=== PATIENT | male | born 1960 | race Caucasian/White ===

== ENCOUNTER 2016-07-09 15:55 | Emergency (ER) | payer MEDICARE, MEDICAID ==
[~2016-07-09] VITALS: Ht 167.6 cm; Wt 120.5 kg
[~2016-07-09 15:55] MED LIST: HYDR50CA PO; SERO150T PO
[2016-07-09 15:57] VITALS: BP 142/89; PULSE 124; RESP 20; TEMP 99.3; O2SAT 98
[2016-07-09 17:08] VITALS: PULSE 66
[2016-07-09] MEDS ORDERED: AMOX875T PO (17:08)
--- NOTE | 2016-07-09 17:09 | PD ---
HPI Chief Complaint: ENT Complaint Time Seen by Provider: 17:08 Travel History International Travel<30 days: No Contact w/Intl Traveler<30days: No Traveled to known affect area: No History of Present Illness HPI 56-year-old male presents to the emergency department for evaluation of right ear fullness and clog. Patient states that for the past 4 days he has had cold symptoms. States that his cold symptoms have been improving but he has had a slight dry cough. States that last night he coughed and felt his right ear became clog. States he put some drops in his ear but this did not help. States that he still feels as though his right ear has a fullness and a discomfort. He denies any decreased hearing, fever, chills, nausea, vomiting, lightheadedness or dizziness, chest pain, shortness breath. No other complaints. PFSH Past Medical History Bipolar Disorder: Yes Anxiety: Yes Depression: Yes Cardiovascular Problems: Yes Diabetes: No Diminished Hearing: No GERD: Yes Headaches: Yes Hepatitis: Yes (TYPE C) Hypertension: Yes Social History Alcohol Use: No (PT STATES " I DRINK RARELY") Tobacco Use: No Substance Use: No Allergies-Medications (Allergen,Severity, Reaction): Coded Allergies: No Known Allergies (Unverified , 07/09/16) Reported Meds & Prescriptions Reported Meds & Active Scripts Active Amoxicillin 875 Mg Tab 875 Mg PO BID 10 Days Review of Systems Except as stated in HPI: all other systems reviewed are Neg Physical Exam Narrative GENERAL: Well-nourished and well-developed pleasant patient in no acute distress who is nontoxic appearing. SKIN: Warm and dry. HEAD: Normocephalic and atraumatic. EYES: No injection, drainage, or hyphema noted. PERRLA. EOMI. ENT: No nasal drainage noted. Oropharynx is clear. Right tympanic membrane is erythematous with small effusion. Left tympanic membrane is within normal limits. No perforation bilaterally. NECK: Supple and the trachea is midline. No lymphadenopathy is noted throughout the cervical chains. CARDIOVASCULAR: Regular rate and rhythm. RESPIRATORY: Breath sounds are equal bilaterally with no accessory muscle use, wheezing, rhonchi, or crackles. NEUROLOGICAL: Awake, alert, and oriented. Normal speech and gait. Cranial nerves are grossly intact. Data Data Last Documented VS Vital Signs Date Time Temp Pulse Resp B/P Pulse Ox O2 Delivery O2 Flow Rate FiO2 1/25/17 17:08 66 07/09/16 15:57 99.3 20 142/89 98 Room Air MDM Medical Decision Making Medical Screen Exam Complete: Yes Emergency Medical Condition: Yes Differential Diagnosis Acute otitis media versus otitis externa versus URI Narrative Course 56-year-old male presents to the emergency department for evaluation of right ear clogging sensation and discomfort. Patient is afebrile, vital signs are stable. Patient does have some erythema and an effusion to the right tympanic membrane. We'll treat the patient with amoxicillin for otitis media. Advised follow-up with his PCP. Stable for discharge. Diagnosis Primary Impression: Right otitis media Qualified Code: H66.91 - Right otitis media, unspecified chronicity, unspecified otitis media type Referrals: Primary Care Physician Patient Instructions: General Instructions, Otitis Media (ED) Additional Instructions: Take medications as prescribed with food and a full glass of water. Follow-up with your Primary Care Physician. Return to the ED for any acute worsening of symptoms. Med/Other Pt SpecificInfo: Prescription(s) given Scripts Amoxicillin 875 Mg [id number] Mg PO BID 10 Days Ref 0 Prov:Cezar Copeland MD 07/09/16 Disposition: 01 DISCHARGE HOME Condition: Stable Vera Pinto Jul 09, 2016 17:09
== END 2016-07-09 17:31 | disposition home or self-care (01) ==
LOC: NEPB 15:55
DX: H66.91 Otitis media, unspecified, right ear (principal); I10 Essential (primary) hypertension
CPT/HCPCS: 99283

== ENCOUNTER 2016-12-31 10:26 | Inpatient (IN) | payer MEDICARE, OTHER ==
[2016-12-31] VITALS (7 sets, daily range): BP systolic 126–142; BP diastolic 80–93; PULSE 86–136; RESP 18–23; TEMP 98.1–98.7; O2SAT 96–99
[~2016-12-31] VITALS: Ht 167.6 cm; Wt 103.3 kg
[~2016-12-31 10:26] MED LIST changes: +AMOX875T PO; -HYDR50CA PO; -SERO150T PO
[2016-12-31] MEDS ORDERED: SERO50TA PO (10:56)
[2016-12-31] MEDS ORDERED: HYDR-3801 PO (10:56)
[2016-12-31 11:10] LABS: AUTOMATED NEUTROPHIL # 6.4 TH/MM3 (1.8-7.7); BASOPHIL # 0.1 TH/MM3 (0-0.2); BASOPHIL % 0.8 % (0.0-2.0); EOSINOPHIL # 0.1 TH/MM3 (0-0.4); EOSINOPHIL % 0.7 % (0.0-4.0); HEMATOCRIT 50.6 % (39.0-51.0); HEMO FLAGS DIFF FINAL; LYMPH % 22.3 % (9.0-44.0); LYMPHOCYTE # 2.2 TH/MM3 (1.0-4.8); MEAN CELL VOLUME 83.9 FL (80.0-100.0); MEAN CORPUSCULAR HEMOGLOBIN 27.6 PG (27.0-34.0); MEAN CORPUSCULAR HGB CONC 32.9 % (32.0-36.0); MONO % 9.9 % (0.0-8.0); NEUT % 66.3 % (16.0-70.0); PLATELET COUNT 254 TH/MM3 (150-450); RED BLOOD COUNT 6.03 MIL/MM3 (4.50-5.90); RED CELL DISTRIBUTION WIDTH 13.5 % (11.6-17.2); WHITE BLOOD COUNT 9.7 TH/MM3 (4.0-11.0)
[2016-12-31] MEDS ORDERED: SODIUM CHLOR 0.9% 1000 ML INJ 1,000 ML IV ONE ×2 (11:15→14:00)
[2016-12-31] MEDS ORDERED: SODIUM CHLORIDE 0.9% FLUSH 10 ML FLUSH IVF PRN (11:15)
[2016-12-31 11:35] LABS: ALT (GPT) 147 U/L (12-78); ANION GAP 26 MEQ/L (5-15); AST (GOT) 144 U/L (15-37); BICARBONATE 8.7 MEQ/L (21.0-32.0); BLOOD UREA NITROGEN 11 MG/DL (7-18); CHLORIDE 93 MEQ/L (98-107); GLOMERULAR FILTRATION RATE 63 ML/MIN (>89); POTASSIUM 3.7 MEQ/L (3.5-5.1); SODIUM (NA) 128 MEQ/L (136-145)
[2016-12-31 11:46] LABS: ALKALINE PHOSPHATASE 109 U/L (45-117)
--- NOTE | 2016-12-31 11:46 | PD ---
HPI Chief Complaint: Medical Clearance Time Seen by Provider: 11:00 Travel History International Travel<30 days: No Contact w/Intl Traveler<30days: No Traveled to known affect area: No History of Present Illness HPI Patient is a 56-year-old male presenting to emergency for evaluation of dry mouth and decreased appetite. Patient states the symptoms have been ongoing for 3-4 days. He reports an episode of vomiting a few days ago. He denies abdominal pain, chest pain, diarrhea, dysuria, shortness of breath, fever, chills. He denies any change in his bowel habits. He reports a history of hypertension and questionable diabetes. He has an appointment with his primary care provider in a few weeks but is unable to get in any sooner. PFSH Past Medical History Bipolar Disorder: Yes Anxiety: Yes Depression: Yes Diabetes: No Diminished Hearing: No GERD: Yes Headaches: Yes Hepatitis: Yes (TYPE C) Hypertension: Yes Tetanus Vaccination: > 5 Years Influenza Vaccination: Yes Past Surgical History Surgical History: No Previous Surgery Social History Alcohol Use: No (PT STATES " I DRINK RARELY") Tobacco Use: No (pt denies) Substance Use: No (pt denies ) Allergies-Medications (Allergen,Severity, Reaction): Coded Allergies: No Known Allergies (Unverified , 12/31/16) Reported Meds & Prescriptions Reported Meds & Active Scripts Active Reported Hydralazine (Hydralazine HCl) 100 Mg Tab 100 Mg PO BID Take with meals Seroquel (Quetiapine Fumarate) 50 Mg Tab 50 Mg PO HS Review of Systems Except as stated in HPI: all other systems reviewed are Neg Gastrointestinal: Positive: Loss of Appetite, Other (dry mouth) Physical Exam Narrative GENERAL: Well-developed, well-nourished, alert male. Resting comfortably in no acute distress. SKIN: Warm and dry. HEAD: Atraumatic. Normocephalic. EYES: Pupils equal and round. No scleral icterus. No injection or drainage. ENT: No nasal bleeding or discharge. Mucous membranes pink and moist. Dry lips. NECK: Trachea midline. No JVD. CARDIOVASCULAR: Regular rate and rhythm. RESPIRATORY: No accessory muscle use. Clear to auscultation. Breath sounds equal bilaterally. GASTROINTESTINAL: Abdomen soft, non-tender, nondistended. Hepatic and splenic margins not palpable. Positive bowel sounds, no rebound, no guarding. MUSCULOSKELETAL: Extremities without clubbing, cyanosis, or edema. No obvious deformities. NEUROLOGICAL: Awake and alert. No obvious cranial nerve deficits. Motor grossly within normal limits. Five out of 5 muscle strength in the arms and legs. Normal speech. PSYCHIATRIC: Appropriate mood and affect; insight and judgment normal. Data Data Last Documented VS Vital Signs Date Time Temp Pulse Resp B/P Pulse Ox O2 Delivery O2 Flow Rate FiO2 12/31/16 11:40 99 Room Air 12/31/16 10:59 112 18 12/31/16 10:29 98.1 134/93 Orders Complete Blood Count With Diff (12/31/16 10:33) Comprehensive Metabolic Panel (12/31/16 10:33) Magnesium (Mg) (12/31/16 11:08) Beta Hydroxybutyrate (Acetone) (12/31/16 11:08) Urinalysis - C+S If Indicated (12/31/16 11:08) Blood Glucose (12/31/16 11:08) Ecg Monitoring (12/31/16 11:08) Iv Access Insert/Monitor (12/31/16 11:08) Oximetry (12/31/16 11:08) Sodium Chloride 0.9% Flush (Ns Flush) (12/31/16 11:15) Sodium Chlor 0.9% 1000 Ml Inj (Ns 1000 M (12/31/16 11:15) Chest, Single Ap (12/31/16 ) Arterial Blood Gas (Abg) (12/31/16 ) ^ Insert Iv (12/31/16 12:47) Diet Npo (12/31/16 Lunch) Sodium Chlor 0.9% 1000 Ml Inj (Ns 1000 M (12/31/16 12:47) Dext 5%-Nacl 0.9% 1000 Ml Inj (D5w-Ns 10 (12/31/16 12:47) Insulin Human Regular Inj (Novolin R Inj (12/31/16 13:00) Insulin Regular (Iv Infusion) (Novolin R (12/31/16 13:00) Potassium Chlor 40 Meq Premix (Kcl 40 Me (12/31/16 13:00) Potassium Chlor 40 Meq Premix (Kcl 40 Me (12/31/16 13:00) Potassium Chlor 20 Meq Premix (Kcl 20 Me (12/31/16 13:00) Potassium Chlor 20 Meq Premix (Kcl 20 Me (12/31/16 13:00) Potassium Chlor 20 Meq Premix (Kcl 20 Me (12/31/16 13:00) Potassium Chlor 20 Meq Premix (Kcl 20 Me (12/31/16 13:00) Potassium Chlor 20 Meq Premix (Kcl 20 Me (12/31/16 13:00) Potassium Chlor 20 Meq Premix (Kcl 20 Me (12/31/16 13:00) Sodium Bicarbonate 8.4% Inj (Sodium Bica (12/31/16 13:00) Sodium Bicarbonate 8.4% Inj (Sodium Bica (12/31/16 13:00) Sodium Phosphate Inj (Sodium Phosphate I (12/31/16 13:00) Hemoglobin (Hgb) A1c (12/31/16 12:47) Basic Metabolic Panel (Bmp) (12/31/16 17:47) Basic Metabolic Panel (Bmp) (12/31/16 23:47) Basic Metabolic Panel (Bmp) (01/01/17 05:47) Basic Metabolic Panel (Bmp) (01/01/17 11:47) Magnesium (Mg) (12/31/16 17:47) Magnesium (Mg) (12/31/16 23:47) Magnesium (Mg) (01/01/17 05:47) Magnesium (Mg) (01/01/17 11:47) Phosphorus (Po4) (12/31/16 17:47) Phosphorus (Po4) (12/31/16 23:47) Phosphorus (Po4) (01/01/17 05:47) Phosphorus (Po4) (01/01/17 11:47) Beta Hydroxybutyrate (Acetone) (12/31/16 23:47) Beta Hydroxybutyrate (Acetone) (01/01/17 11:47) Labs Laboratory Tests Test 12/31/16 12/31/16 10:45 12:29 White Blood Count 9.7 TH/MM3 Red Blood Count 6.03 MIL/MM3 Hemoglobin 16.7 GM/DL Hematocrit 50.6 % Mean Corpuscular Volume 83.9 FL Mean Corpuscular Hemoglobin 27.6 PG Mean Corpuscular Hemoglobin 32.9 % Concent Red Cell Distribution Width 13.5 % Platelet Count 254 TH/MM3 Mean Platelet Volume 8.7 FL Neutrophils (%) (Auto) 66.3 % Lymphocytes (%) (Auto) 22.3 % Monocytes (%) (Auto) 9.9 % Eosinophils (%) (Auto) 0.7 % Basophils (%) (Auto) 0.8 % Neutrophils # (Auto) 6.4 TH/MM3 Lymphocytes # (Auto) 2.2 TH/MM3 Monocytes # (Auto) 1.0 TH/MM3 Eosinophils # (Auto) 0.1 TH/MM3 Basophils # (Auto) 0.1 TH/MM3 CBC Comment DIFF FINAL Differential Comment Sodium Level 128 MEQ/L Potassium Level 3.7 MEQ/L Chloride Level 93 MEQ/L Carbon Dioxide Level 8.7 MEQ/L Anion Gap 26 MEQ/L Blood Urea Nitrogen 11 MG/DL Creatinine 1.19 MG/DL Estimat Glomerular Filtration 63 ML/MIN Rate Random Glucose 436 MG/DL Calcium Level 9.2 MG/DL Magnesium Level 2.0 MG/DL Total Bilirubin 1.0 MG/DL Aspartate Amino Transf 144 U/L (AST/SGOT) Alanine Aminotransferase 147 U/L (ALT/SGPT) Alkaline Phosphatase 109 U/L Total Protein 8.7 GM/DL Albumin 3.9 GM/DL B-Hydroxybutyrate 15.76 MMOL/L Blood Gas Puncture Site RT RADIAL Blood Gas Patient Temperature 98.6 Blood Gas HCO3 8 mmol/L Blood Gas Base Excess -17.6 mmol/L Blood Gas Oxygen Saturation 96 % Arterial Blood pH 7.30 Arterial Blood Partial 17 mmHg Pressure CO2 Arterial Blood Partial 107 mmHG Pressure O2 Arterial Blood Oxygen Content 20.8 Vol % Arterial Blood 1.3 % Carboxyhemoglobin Arterial Blood Methemoglobin 0.6 % Blood Gas Hemoglobin 15.3 G/DL Oxygen Delivery Device RA Blood Gas Inspired Oxygen 21 % MDM Medical Decision Making Medical Screen Exam Complete: Yes Emergency Medical Condition: Yes Interpretation(s) Laboratory Tests Test 12/31/16 12/31/16 10:45 12:29 White Blood Count 9.7 TH/MM3 Red Blood Count 6.03 MIL/MM3 Hemoglobin 16.7 GM/DL Hematocrit 50.6 % Mean Corpuscular Volume 83.9 FL Mean Corpuscular Hemoglobin 27.6 PG Mean Corpuscular Hemoglobin 32.9 % Concent Red Cell Distribution Width 13.5 % Platelet Count 254 TH/MM3 Mean Platelet Volume 8.7 FL Neutrophils (%) (Auto) 66.3 % Lymphocytes (%) (Auto) 22.3 % Monocytes (%) (Auto) 9.9 % Eosinophils (%) (Auto) 0.7 % Basophils (%) (Auto) 0.8 % Neutrophils # (Auto) 6.4 TH/MM3 Lymphocytes # (Auto) 2.2 TH/MM3 Monocytes # (Auto) 1.0 TH/MM3 Eosinophils # (Auto) 0.1 TH/MM3 Basophils # (Auto) 0.1 TH/MM3 CBC Comment DIFF FINAL Differential Comment Sodium Level 128 MEQ/L Potassium Level 3.7 MEQ/L Chloride Level 93 MEQ/L Carbon Dioxide Level 8.7 MEQ/L Anion Gap 26 MEQ/L Blood Urea Nitrogen 11 MG/DL Creatinine 1.19 MG/DL Estimat Glomerular Filtration 63 ML/MIN Rate Random Glucose 436 MG/DL Calcium Level 9.2 MG/DL Magnesium Level 2.0 MG/DL Total Bilirubin 1.0 MG/DL Aspartate Amino Transf 144 U/L (AST/SGOT) Alanine Aminotransferase 147 U/L (ALT/SGPT) Alkaline Phosphatase 109 U/L Total Protein 8.7 GM/DL Albumin 3.9 GM/DL B-Hydroxybutyrate 15.76 MMOL/L Blood Gas Puncture Site RT RADIAL Blood Gas Patient Temperature 98.6 Blood Gas HCO3 8 mmol/L Blood Gas Base Excess -17.6 mmol/L Blood Gas Oxygen Saturation 96 % Arterial Blood pH 7.30 Arterial Blood Partial 17 mmHg Pressure CO2 Arterial Blood Partial 107 mmHG Pressure O2 Arterial Blood Oxygen Content 20.8 Vol % Arterial Blood 1.3 % Carboxyhemoglobin Arterial Blood Methemoglobin 0.6 % Blood Gas Hemoglobin 15.3 G/DL Oxygen Delivery Device RA Blood Gas Inspired Oxygen 21 % Vital Signs Date Time Temp Pulse Resp B/P Pulse Ox O2 Delivery O2 Flow Rate FiO2 12/31/16 10:59 112 18 12/31/16 10:29 98.1 136 20 134/93 98 Room Air Differential Diagnosis Metabolic abnormality versus DKA versus hyperglycemia versus other Narrative Course Patient is a 56-year-old male presenting for evaluation of dry mouth and decreased appetite. He had one episode of vomiting a few days ago. He states he gets sweaty at times. He thinks he may be diabetic but is uncertain. Blood glucose elevated over 400 in triage. Labs and imaging ordered and pending. IV access established, patient placed on telemetry monitoring and continue his pulse oximetry. Chest x-ray shows no acute disease. ABG shows metabolic alkalosis Chemistry with an anion gap of 26, glucose 436, sodium 128, met 2.0, K 3.7, AST/ ALT 144/147 CBC is unremarkable Beta hydroxybutyrate is 15.76 DKA protocol ordered, patient received 1 L IV fluids prior to diagnosis. Patient's vital signs remain stable. Discussed findings with patient, he is agreeable to stay although he requested to go home to turn off his air conditioner. Discussed with Dr. Vargas who accepted admission. Admit orders placed for intensive care unit. Diagnosis Primary Impression: DKA (diabetic ketoacidoses) Qualified Code: E13.10 - Diabetic ketoacidosis without coma associated with type 2 diabetes mellitus Additional Impression: Hypertension Qualified Code: I10 - Hypertension, unspecified type Admitting Information Admitting Physician Requests: Admit Condition: Stable Risa Jones [facility] Dec 31, 2016 11:46
[2016-12-31 12:39] LABS: BLOOD GAS BASE EXCESS -17.6 mmol/L (-2-2); BLOOD GAS CARBOXYHEMOGLOBIN 1.3 % (0-4); BLOOD GAS HCO3 8 mmol/L (22-26); BLOOD GAS METHEMOGLOBIN 0.6 % (0-2); BLOOD GAS O2 HGB SATURATION 96 % (90-100); BLOOD GAS OXYGEN CONTENT 20.8 Vol % (12.0-20.0); BLOOD GAS PCO2 17 mmHg (38-42); BLOOD GAS PO2 107 mmHG (61-120); BLOOD GAS TOTAL HGB 15.3 G/DL (12.0-16.0); TEMP CORR TO 98.6
[2016-12-31 12:40] LABS: CRITICAL VALUE YES; DRAW SITE RT RADIAL; FIO2 21 %; NUMBER OF ARTERIAL PUNCTURES 1; OXYGEN DEVICE RA; STAT YES; ULNAR PULSE PRESENT
[2016-12-31 12:41] LABS: BETA-HYDROXYBUTYRATE 15.76 MMOL/L (0.00-0.39)
--- NOTE | 2016-12-31 12:51 | RADRPT ---
EXAM DATE/TIME: 12/31/2016 12:22 [place] COMPARISON: No previous studies available for comparison. INDICATIONS : Nausea, vomiting, dizziness. MEDICAL HISTORY : None. SURGICAL HISTORY : None. ENCOUNTER: Initial ACUITY: 2 days PAIN SCORE: 0/10 LOCATION: Bilateral chest FINDINGS: A single view of the chest demonstrates the lungs to be symmetrically aerated without evidence of mas s, infiltrate or effusion. The cardiomediastinal contours are unremarkable. Prominent cardiac fat-p ad. Osseous structures are intact. CONCLUSION: No acute disease. Catarino Redmond MD on December 31, 2016 at 12:49 Board Certified Radiologist. This report was verified electronically.
[2016-12-31] MEDS ORDERED: SODIUM PHOSPHATE INJ 15 MMOL in SODIUM CHLORIDE 0.9% INJ 100 ML IV PRN (13:00)
[2016-12-31] MEDS ORDERED: POTASSIUM CHLOR 40 MEQ PREMIX 100 ML IV PRN ×2 (13:00)
[2016-12-31] MEDS ORDERED: INSULIN HUMAN REGULAR 1,000 UNITS/10 ML VIAL IV PUSH ONE (13:00)
[2016-12-31] MEDS ORDERED: INSULIN REGULAR (IV INFUSION) 100 UNITS in SODIUM CHLORIDE 0.9% INJ 99 ML IV SCH (13:00)
[2016-12-31] MEDS ORDERED: POTASSIUM CHLOR 20 MEQ PREMIX 100 ML IV PRN ×3 (13:00)
[2016-12-31] MEDS ORDERED: SODIUM BICARBONATE 8.4% SOLN 50 MEQ/50 ML VIAL IV PRN ×2 (13:00)
[2016-12-31] MEDS ORDERED: SENNOSIDES 8.6 MG TAB PO PRN (13:15)
[2016-12-31] MEDS ORDERED: BISACODYL 10 MG SUPP RECTAL PRN (13:15)
[2016-12-31] MEDS ORDERED: ONDANSETRON HCL 4 MG/2 ML VIAL IVP PRN (13:15)
[2016-12-31] MEDS ORDERED: MAGNESIUM HYDROXIDE SUSP 30 ML CUP PO PRN (13:15)
[2016-12-31] MEDS ORDERED: TEMAZEPAM 15 MG CAP PO PRN (13:15)
[2016-12-31] MEDS ORDERED: SODIUM CHLORIDE 0.9% FLUSH 10 ML FLUSH IV FLUSH PRN (13:15)
[2016-12-31] MEDS ORDERED: NALOXONE HCL 0.4 MG/ML AMP IV PRN (13:15)
[2016-12-31] MEDS ORDERED: LACTULOSE SYRUP 20 GM/30 ML CUP PO PRN (13:15)
[2016-12-31 13:35] LABS: BLOOD, URINE NEG (NEG); COMMENT (UR) CULT NOT INDICATED; CULTURE IF INDICATED CULT NOT INDICATED; GLUCOSE,URINE 1000 mg/dL (NEG); HYALINE CAST, URINE 3 /lpf (RARE); KETONE, URINE 150 mg/dL (NEG); MUCUS URINE FEW /lpf (OCC); NITRITE,URINE NEG (NEG); SQUAMOUS EPITHELIAL CELL URINE <1 /hpf (0-5); URINE COLOR LIGHT-YELLOW (YELLW/STRAW)
--- NOTE | 2016-12-31 14:26 | HHI.HP ---
HPI Service [facility] Primary Care Physician Cody Van III, MD Admission Diagnosis DKA Diagnoses: Chief Complaint: dry mouth, decreased appetite Travel History International Travel<30 Days: No Contact w/Intl Traveler <30 Da: No Traveled to Known Affected Are: No History of Present Illness This is a 56-year-old white male who presented to the emergency room with complaints of dry mouth and decreased appetite. Patient has significant past medical history of hepatitis C, prior diagnosis of hypertension hyperlipidemia but doesn't take any medications, anxiety, depression, bipolar disease. Patient indicates that he suspected he has diabetes but has not seen his primary care physician in many years, he had an appointment for next week but because he felt so poorly he decided to come to the emergency room. Patient endorses increased mouth dryness, increased thirst, has had poor appetite. He had an episode of vomiting a few days ago. Denies any abdominal pain, no chest pain, no shortness of breath, no diarrhea, no fever, no chills. Patient indicates that he only follows up regularly with his psychiatrist as shaniqua Stafford and is compliant with his psychiatric medications. In the emergency room, patient was evaluated, he was noted tachycardic, heart rate 112, temperature 90.1, respiratory rate 18, blood pressure 134/93, sats 99% on room air. CBC was unremarkable. BMP remarkable for hyponatremia, sodium 128, chloride 93, carbon dioxide 8.7, anion gap 26, GFR 63, random glucose 436, AST 144, ALT 147. Urinalysis positive for glycosuria and ketones. B hydroxy butyrate was 15.76. Patient was started on DKA protocol, he has received 1 L IV fluids. Patient indicates that he quit drinking many years ago. He was diagnosed with hepatitis C but has never sought treatment with cork painter and grader. His abdomen is noted protuberant, indicates that he has noted an increase in weight but he attributes it to Seroquel. Patient is admitted for further evaluation and treatment. Review of Systems Constitutional: DENIES: Diaphoretic episodes, Fatigue, Fever, Weight gain, Weight loss, Chills, Dizziness, Change in appetite, Night Sweats Endocrine: COMPLAINS OF: Polydipsia, DENIES: Heat/cold intolerance, Polyuria, Polyphagia Eyes: DENIES: Blurred vision, Diplopia, Eye inflammation, Eye pain, Vision loss , Photosensitivity, Double Vision Ears, nose, mouth, throat: DENIES: Tinnitus, Hearing loss, Vertigo, Nasal discharge, Oral lesions, Throat pain, Hoarseness, Ear Pain, Running Nose, Epistaxis, Sinus Pain, Toothache, Odynophagia Respiratory: DENIES: Apneas, Cough, Snoring, Wheezing, Hemoptysis, Sputum production, Shortness of breath Cardiovascular: DENIES: Chest pain, Palpitations, Syncope, Dyspnea on Exertion , PND, Lower Extremity Edema, Orthopnea, Claudication Gastrointestinal: COMPLAINS OF: Nausea, Vomiting, DENIES: Abdominal pain, Black stools, Bloody stools, Constipation, Diarrhea, Difficulty Swallowing, Anorexia Genitourinary: DENIES: Sexual dysfunction, Urinary frequency, Urinary incontinence, Urgency, Hematuria, Dysuria, Nocturia, Penile Discharge, Testicular Pain, Testicular Swelling Musculoskeletal: DENIES: Joint pain, Muscle aches, Stiffness, Joint Swelling, Back pain, Neck pain Integumentary: DENIES: Abnormal pigmentation, Nail changes, Pruritus, Rash Hematologic/lymphatic: DENIES: Bruising, Lymphadenopathy Immunologic/allergic: DENIES: Eczema, Urticaria Neurologic: DENIES: Abnormal gait, Headache, Localized weakness, Paresthesias, Seizures, Speech Problems, Tremor, Poor Balance Psychiatric: DENIES: Anxiety, Confusion, Mood changes, Depression, Hallucinations, Agitation, Suicidal Ideation, Homicidal Ideation, Delusions Past Family Social History Past Medical History Hypertension, doesn't take any medications Hyperlipidemia, doesn't take any medications Hepatitis C, diagnosed 3-4 years ago,has not had treatment Prior ETOH abuse Headaches Anxiety Depression Bipolar Obesity Past Surgical History left ankle surgery Reported Medications Reported Meds & Active Scripts Active Reported Hydralazine (Hydralazine HCl) 100 Mg Tab 100 Mg PO BID Take with meals Seroquel (Quetiapine Fumarate) 50 Mg Tab 50 Mg PO HS Allergies: Coded Allergies: No Known Allergies (Unverified , 12/31/16) Active Ordered Medications Last Impressions Chest X-Ray 12/31/16 0000 Signed Impressions: Service Date/Time: Thursday, December 31, 2016 12:22 - CONCLUSION: No acute disease. Catarino Redmond MD Family History Father is , history of diabetes, coronary artery disease, myocardial infarction Mother age 91 old age. Had history of coronary artery disease Social History Patient is retired,is not , no children. Quit drinking many years ago, no substance abuse, no tobacco Physical Exam Vital Signs Vital Signs Date Time Temp Pulse Resp B/P Pulse Ox O2 Delivery O2 Flow Rate FiO2 12/31/16 13:55 104 18 142/88 96 Room Air 12/31/16 11:40 99 Room Air 12/31/16 10:59 112 18 12/31/16 10:29 98.1 136 20 134/93 98 Room Air Physical Exam GENERAL: This is a well-nourished, well-developed patient, in no apparent distress. SKIN: No rashes, ecchymoses or lesions. Cool and dry. HEAD: Atraumatic. Normocephalic. No temporal or scalp tenderness. EYES: Pupils equal round and reactive. Extraocular motions intact. No scleral icterus. No injection or drainage. ENT: Nose without bleeding, purulent drainage or septal hematoma. Throat without erythema, tonsillar hypertrophy or exudate. Uvula midline. Airway patent. NECK: Trachea midline. No JVD or lymphadenopathy. Supple, nontender, no meningeal signs. CARDIOVASCULAR: Regular rate and rhythm without murmurs, gallops, or rubs. RESPIRATORY: Clear to auscultation. Breath sounds equal bilaterally. No wheezes , rales, or rhonchi. Tachypneic GASTROINTESTINAL: Abdomen protuberant, soft, non tender. Unable to detect hepato -splenomegaly, or palpable masses due to body habitus. No guarding. MUSCULOSKELETAL: Extremities without clubbing, cyanosis, or edema. No joint tenderness, effusion, or edema noted. No calf tenderness. Negative Homans sign bilaterally. NEUROLOGICAL: Awake and alert. Cranial nerves II through XII intact. Motor and sensory grossly within normal limits. Five out of 5 muscle strength in all muscle groups. Normal speech. Laboratory Laboratory Tests Test 12/31/16 12/31/16 12/31/16 10:45 12:29 13:10 White Blood Count 9.7 Red Blood Count 6.03 Hemoglobin 16.7 Hematocrit 50.6 Mean Corpuscular Volume 83.9 Mean Corpuscular Hemoglobin 27.6 Mean Corpuscular Hemoglobin 32.9 Concent Red Cell Distribution Width 13.5 Platelet Count 254 Mean Platelet Volume 8.7 Neutrophils (%) (Auto) 66.3 Lymphocytes (%) (Auto) 22.3 Monocytes (%) (Auto) 9.9 Eosinophils (%) (Auto) 0.7 Basophils (%) (Auto) 0.8 Neutrophils # (Auto) 6.4 Lymphocytes # (Auto) 2.2 Monocytes # (Auto) 1.0 Eosinophils # (Auto) 0.1 Basophils # (Auto) 0.1 CBC Comment DIFF FINAL Differential Comment Sodium Level 128 Potassium Level 3.7 Chloride Level 93 Carbon Dioxide Level 8.7 Anion Gap 26 Blood Urea Nitrogen 11 Creatinine 1.19 Estimat Glomerular Filtration 63 Rate Random Glucose 436 Calcium Level 9.2 Magnesium Level 2.0 Total Bilirubin 1.0 Aspartate Amino Transf 144 (AST/SGOT) Alanine Aminotransferase 147 (ALT/SGPT) Alkaline Phosphatase 109 Total Protein 8.7 Albumin 3.9 B-Hydroxybutyrate 15.76 Blood Gas Puncture Site RT RADIAL Blood Gas Patient Temperature 98.6 Blood Gas HCO3 8 Blood Gas Base Excess -17.6 Blood Gas Oxygen Saturation 96 Arterial Blood pH 7.30 Arterial Blood Partial 17 Pressure CO2 Arterial Blood Partial 107 Pressure O2 Arterial Blood Oxygen Content 20.8 Arterial Blood 1.3 Carboxyhemoglobin Arterial Blood Methemoglobin 0.6 Blood Gas Hemoglobin 15.3 Oxygen Delivery Device RA Blood Gas Inspired Oxygen 21 Urine Color LIGHT-YELLOW Urine Turbidity CLEAR Urine pH 5.0 Urine Specific [place] 1.025 Urine Protein TRACE Urine Glucose (UA) 1000 Urine Ketones 150 Urine Occult Blood NEG Urine Nitrite NEG Urine Bilirubin NEG Urine Urobilinogen LESS THAN 2.0 Urine Leukocyte Esterase NEG Urine RBC LESS THAN 1 Urine WBC LESS THAN 1 Urine Squamous Epithelial <1 Cells Urine Hyaline Casts 3 Urine Mucus FEW Microscopic Urinalysis Comment CULT NOT INDICATED Result Diagram: 12/31/16 1045 12/31/16 1045 Imaging Last Impressions Chest X-Ray 12/31/16 0000 Signed Impressions: Service Date/Time: Saturday, December 31, 2016 12:22 - CONCLUSION: No acute disease. Catarino Redmond MD Assessment and Plan Problem List: (1) DKA (diabetic ketoacidoses) (2) Hypertension (3) Obesity (4) Hepatitis C (5) Elevated liver enzymes (6) Non-compliance (7) Hyponatremia Assessment and Plan Admit to Dr. Vargas 56-year-old male presented to the hospital with complaints of dry mouth, increased thirst decreased appetite. Symptoms have been going for 3-4 days, patient has suspected that he is diabetic however he has not follow-up with PCP in many years. Patient was found in DKA, random glucose of 436. DKA -Patient will be put on insulin drip per DKA protocol Continue with IV fluids Repeat BMP and beta hydroxybutyrate per protocol Hemoglobin A1c in the morning -Consult advertising sales agent Hyponatremia Follow BMP in the morning Currently on normal saline Elevated liver enzymes History hepatitis C, has never received treatment. Quit drinking many years ago , was a heavy alcohol user -Repeat LFTs in the morning We will check a liver ultrasound -Patient is encouraged to follow up as outpatient with chemistry account manager for further evaluation and treatment of hepatitis C Hypertension, patient is not on any medications Add Vasotec 1.25 mg IV push every 6 when necessary for systolic greater than 160 and diastolic greater than 90 Hyperlipidemia, not on any medications Lipid profile in the morning Home medications reviewed, initiated as indicated Heparin for DVT prophylaxis Plan of care has been discussed with the patient, attending and registered nurse. Further management of the patient will be dependent on the hospital course This patient was seen by myself and Dr. Vargas, this H&P is written on his behalf Physician Certification 2 Midnight Certification Type: Admission for Inpatient Services Order for Inpatient Services The services are ordered in accordance with Medicare regulations or non- Medicare payer requirements, as applicable. In the case of services not specified as inpatient-only, they are appropriately provided as inpatient services in accordance with the 2-midnight benchmark. Estimated LOS (days): 2 2 days is the estimated time the patient will need to remain in the hospital, assuming treatment plan goals are met and no additional complications. Post-Hospital Plan: Home Problem Qualifiers (1) DKA (diabetic ketoacidoses): Qualified Code: E13.10 - Diabetic ketoacidosis without coma associated with type 2 diabetes mellitus (2) Hypertension: Qualified Code: I10 - Hypertension, unspecified type (3) Obesity: (4) Hepatitis C: Qualified Code: B18.2 - Chronic hepatitis C without hepatic coma Gricel Zhang Dec 31, 2016 14:26
[2016-12-31] MEDS: POTASSIUM CHLOR 20 MEQ PREMIX 100 ML IV PRN (14:35)
[2016-12-31] MEDS ORDERED: ENALAPRILAT 1.25 MG/ML VIAL IV PUSH PRN (15:30)
[2016-12-31] MEDS: HEPARIN SODIUM - SQ 10,000 UNITS/ML VIAL SQ SCH (15:45)
--- NOTE | 2016-12-31 16:10 | RADRPT ---
EXAM DATE/TIME: 12/31/2016 15:17 [facility] COMPARISON: No previous studies available for comparison. INDICATIONS : Abnormal labs. MEDICAL HISTORY : Hypertension. Gastroesophageal reflux disease. Hepatitis C. Bipolar. DKA. SURGICAL HISTORY : Left ankle hardware surgery. ENCOUNTER: Initial ACUITY: 1 day PAIN SCORE: 2/10 LOCATION: Bilateral upper quadrant MEASUREMENTS: LIVER: 17.9 cm length COMMON DUCT: 6 mm RIGHT KIDNEY: 10.3 x 5.7 x 5.7 cm SPLEEN: 10.2 cm length FINDINGS: LIVER: The liver is diffusely echogenic. A focal area of decreased echogenicity is seen adjacent to the gall bladder fossa consistent with focal fatty sparing. No mass or ductal dilatation. Hepatopedal flow wit hin the portal vein. COMMON DUCT: No intraluminal mass or stone visualized. GALLBLADDER: Contains no stones, demonstrates no wall thickening or pericholecystic fluid. Minimal sludge within t he lumen. PANCREAS: Obscured by bowel gas. RIGHT KIDNEY: No hydronephrosis, stone or mass. SPLEEN: No focal lesion. CONCLUSION: 1. Minimal gallbladder sludge. No sonographic evidence to suggest acute cholecystitis. 2. Hepatic steatosis with focal fatty sparing adjacent to gallbladder fossa. Teddy Espino Jr., MD on December 31, 2016 at 16:06 Board Certified Radiologist. This report was verified electronically.
[2016-12-31] MEDS: DEXT 5%-NACL 0.9% 1000 ML INJ 1,000 ML IV SCH ×2 (16:28→21:31)
[2016-12-31] MEDS: SODIUM CHLOR 0.9% 1000 ML INJ 1,000 ML IV SCH ×2 (16:47→20:47)
[2016-12-31 20:50] LABS: BICARBONATE 12.6 MEQ/L (21.0-32.0); MAGNESIUM 1.8 MG/DL (1.5-2.5); POTASSIUM 3.3 MEQ/L (3.5-5.1)
[2016-12-31] MEDS: DOCUSATE SODIUM 50 MG/SENNA 8.6 MG TAB PO SCH (21:00)
[2016-12-31] MEDS: SODIUM CHLORIDE 0.9% FLUSH 10 ML FLUSH IV FLUSH SCH (21:00)
[2016-12-31] MEDS ORDERED: CHLORHEXIDINE GLUCONATE 2 % 1 PACK (2 CLOTHS)(extra cloths) TOPICAL PRN (23:30)
[2017-01-01] VITALS (14 sets, daily range): BP systolic 117–147; BP diastolic 75–97; PULSE 82–94; RESP 20–26; TEMP 97.2–99.1; O2SAT 95–97
[2017-01-01] MEDS: SODIUM CHLOR 0.9% 1000 ML INJ 1,000 ML IV SCH ×6 (00:47→20:47)
[2017-01-01 02:00] LABS: ANION GAP 14 MEQ/L (5-15); BICARBONATE 14.9 MEQ/L (21.0-32.0); BLOOD UREA NITROGEN 8 MG/DL (7-18); CHLORIDE 109 MEQ/L (98-107); GLOMERULAR FILTRATION RATE 100 ML/MIN (>89); MAGNESIUM 1.7 MG/DL (1.5-2.5); POTASSIUM 3.1 MEQ/L (3.5-5.1); SODIUM (NA) 138 MEQ/L (136-145)
[2017-01-01] MEDS: POTASSIUM CHLOR 20 MEQ PREMIX 100 ML IV PRN ×7 (02:00→21:56)
[2017-01-01 02:01] LABS: BETA-HYDROXYBUTYRATE 3.99 MMOL/L (0.00-0.39)
[2017-01-01] MEDS: CHLORHEXIDINE GLUCONATE 2 % 1 PACK (2 CLOTHS)(taper/protocol) TOPICAL SCH (04:00)
[2017-01-01] MEDS: HEPARIN SODIUM - SQ 10,000 UNITS/ML VIAL SQ SCH ×2 (05:05→14:18)
[2017-01-01] MEDS ORDERED: POTASSIUM PHOSPHATE INJ 30 MMOL in SODIUM CHLOR 0.9% 250 ML INJ 250 ML IV ONE (08:15)
[2017-01-01] MEDS: DOCUSATE SODIUM 50 MG/SENNA 8.6 MG TAB PO SCH ×2 (08:20→21:00)
[2017-01-01] MEDS ORDERED: SODIUM PHOSPHATE INJ 30 MMOL in SODIUM CHLOR 0.9% 250 ML INJ 250 ML IV ONE (10:00)
[2017-01-01] MEDS ORDERED: PNEUMOCOCCAL POLYVALENT INJ 25 MCG/0.5 ML SYR IM ONE (10:00)
[2017-01-01] MEDS: DEXT 5%-NACL 0.9% 1000 ML INJ 1,000 ML IV SCH ×2 (10:16→10:52)
[2017-01-01] MEDS: SODIUM CHLORIDE 0.9% FLUSH 10 ML FLUSH IV FLUSH SCH ×2 (11:08→21:12)
[2017-01-01 12:19] LABS: BICARBONATE 14.6 MEQ/L (21.0-32.0); MAGNESIUM 1.7 MG/DL (1.5-2.5); POTASSIUM 3.6 MEQ/L (3.5-5.1)
[2017-01-01 12:29] LABS: INDIRECT BILIRUBIN 0.6 MG/DL (0.0-0.8); TOTAL BILIRUBIN ADULT 0.8 MG/DL (0.2-1.0)
[2017-01-01 16:04] LABS: ANION GAP 13 MEQ/L (5-15); BICARBONATE 17.4 MEQ/L (21.0-32.0); BLOOD UREA NITROGEN 5 MG/DL (7-18); CHLORIDE 109 MEQ/L (98-107); GLOMERULAR FILTRATION RATE 121 ML/MIN (>89); MAGNESIUM 1.7 MG/DL (1.5-2.5); POTASSIUM 3.2 MEQ/L (3.5-5.1); SODIUM (NA) 139 MEQ/L (136-145)
[2017-01-01 16:13] LABS: BETA-HYDROXYBUTYRATE 1.99 MMOL/L (0.00-0.39); LDL CHOLESTEROL 130 MG/DL (0-99)
--- NOTE | 2017-01-01 17:19 | HHI.PR ---
Subjective Interval History Alert, oriented, less thirst, less urinary frequency, feels overall better Review of Systems Constitutional Constitutional Remarks 10 systems reviewed otherwise negative Vitals/Results Intake & Output 12/31/16 12/31/16 01/01/17 15:00 23:00 07:00 Intake Total 1717 ml 1248 ml Output Total 250 ml 150 ml Balance 1467 ml 1098 ml Intake IV Total 1717 ml 1248 ml Output Urine Total 250 ml 150 ml Stool Total 0 ml 0 ml Vital Signs Vital Signs Date Time Temp Pulse Resp B/P Pulse Ox O2 Delivery O2 Flow Rate FiO2 01/01/17 14:00 84 01/01/17 12:00 85 01/01/17 12:00 97.6 85 21 136/85 96 01/01/17 10:00 88 01/01/17 08:00 85 01/01/17 08:00 98.4 85 21 147/86 97 01/01/17 06:00 90 01/01/17 04:00 85 01/01/17 04:00 98.1 85 20 130/75 97 01/01/17 02:00 86 01/01/17 00:00 97.2 88 26 117/78 95 01/01/17 00:00 88 12/31/16 22:00 86 12/31/16 20:00 98.7 92 23 126/80 96 12/31/16 20:00 92 12/31/16 18:00 101 CBC/BMP: 12/31/16 1045 01/01/17 1452 Lab Results Laboratory Tests Test 12/31/16 12/31/16 01/01/17 01/01/17 18:00 19:34 01:15 11:07 Nasal Screen MRSA (PCR) MRSA NOT DETECTED Sodium Level 137 MEQ/L 138 MEQ/L 136 MEQ/L Potassium Level 3.3 MEQ/L 3.1 MEQ/L 3.6 MEQ/L Chloride Level 105 MEQ/L 109 MEQ/L 109 MEQ/L Carbon Dioxide Level 12.6 MEQ/L 14.9 MEQ/L 14.6 MEQ/L Anion Gap 19 MEQ/L 14 MEQ/L 12 MEQ/L Blood Urea Nitrogen 9 MG/DL 8 MG/DL 7 MG/DL Creatinine 0.87 MG/DL 0.80 MG/DL 0.68 MG/DL Estimat Glomerular Filtration 91 ML/MIN 100 ML/MIN 121 ML/MIN Rate Random Glucose 145 MG/DL 152 MG/DL 265 MG/DL Calcium Level 8.4 MG/DL 7.9 MG/DL 7.9 MG/DL Phosphorus Level 1.7 MG/DL 1.6 MG/DL 1.0 MG/DL Magnesium Level 1.8 MG/DL 1.7 MG/DL 1.7 MG/DL B-Hydroxybutyrate 3.99 MMOL/L Total Bilirubin 0.8 MG/DL Direct Bilirubin 0.2 MG/DL Indirect Bilirubin 0.6 MG/DL Aspartate Amino Transf 64 U/L (AST/SGOT) Alanine Aminotransferase 89 U/L (ALT/SGPT) Alkaline Phosphatase 73 U/L Total Protein 6.2 GM/DL Albumin 2.8 GM/DL Test 01/01/17 14:52 Sodium Level 139 MEQ/L Potassium Level 3.2 MEQ/L Chloride Level 109 MEQ/L Carbon Dioxide Level 17.4 MEQ/L Anion Gap 13 MEQ/L Blood Urea Nitrogen 5 MG/DL Creatinine 0.68 MG/DL Estimat Glomerular Filtration 121 ML/MIN Rate Random Glucose 239 MG/DL Calcium Level 7.9 MG/DL Phosphorus Level 1.4 MG/DL Magnesium Level 1.7 MG/DL Triglycerides Level 124 MG/DL Cholesterol Level 201 MG/DL LDL Cholesterol 130 MG/DL HDL Cholesterol 46.0 MG/DL Cholesterol/HDL Ratio 4.36 RATIO Thyroid Stimulating Hormone 0.848 uIU/ML 3rd Gen B-Hydroxybutyrate 1.99 MMOL/L Physical Exam General General Appearance: Comfortable, Obese Eyes Eye Exam: Pupils Reactive Ears & Nose Ears & Nose Exam: Nasal Mucosa [place] Throat Throat Exam: Oral Mucosa [place] & Moist Neck Neck Exam: Trachea Midline Pulmonary Resp Exam: Breath Sounds Equal Cardiology CV Exam: Normal Sinus Rhythm Gastrointestinal/Abdomen GI Exam: Non-Tender, Bowel Sounds Present Musculoskeletal MS Exam: Normal Tone Integumentary Skin Exam: Warm, Dry Neurologic Neuro Exam: Alert, Awake, Oriented, Speech Clear, Moving All Extremities Psychiatric Psych Exam: Appropriate Responses VTE Prophylaxis VTE Prophylaxis Meds: Heparin Assessment/Plan Assessment/Plan Assessment Diabetic ketoacidosis, improving Obesity Hyponatremia, resolved Hyperlipidemia Hypophosphatemia Hypokalemia History of hepatitis C Management Continue IV insulin drip until anion gap has closed Replace phosphate Replace potassium Start long-acting insulin Statin Start metformin Diabetes education Needs to lose weight, discussed with patient Discussed with nurse 40 minutes Yeni Vargas MD Jan 01, 2017 17:19
[2017-01-01 18:23] LABS: HEMOGLOBIN A1a 1.4 %; HEMOGLOBIN A1b 1.1 %; HEMOGLOBIN Ao 71.2 %; HEMOGLOBIN F 2.1 %; HEMOGLOBIN LA1C 2.3 %; HEMOGLOBIN P3 4.7 %
[2017-01-01 18:39] LABS: HEMOGLOBIN A1a 1.4 %; HEMOGLOBIN A1b 1.1 %; HEMOGLOBIN Ao 70.8 %; HEMOGLOBIN F 2.1 %; HEMOGLOBIN LA1C 3.1 %; HEMOGLOBIN P3 4.6 %
[2017-01-01] MEDS ORDERED: INSULIN REGULAR (IV INFUSION) 100 UNITS in SODIUM CHLORIDE 0.9% INJ 99 ML IV SCH (19:00)
[2017-01-01] MEDS ORDERED: INSULIN DETEMIR 100 UNITS/ML VIAL SQ SCH (21:00)
[2017-01-01] MEDS: [UNRECOGNIZED DRUG - OTHER] IV SCH (21:12)
[2017-01-01] MEDS: SODIUM BICARBONATE IV SCH (21:12)
[2017-01-01] MEDS: POTASSIUM CHLORIDE IV SCH (21:12)
[2017-01-01 21:33] LABS: BETA-HYDROXYBUTYRATE 1.51 MMOL/L (0.00-0.39)
[2017-01-01 21:36] LABS: POTASSIUM 2.9 MEQ/L (3.5-5.1)
[2017-01-01] MEDS ORDERED: GLUCAGON 1 MG/ML VIAL OTHER PRN (22:45)
[2017-01-01] MEDS ORDERED: DEXTROSE 50% IN WATER 50 ML VIAL(D50) IV PUSH PRN (22:45)
[2017-01-02] VITALS (14 sets, daily range): BP systolic 125–168; BP diastolic 76–102; PULSE 73–116; RESP 18–28; TEMP 97.8–99; O2SAT 95–98
[2017-01-02] MEDS: HEPARIN SODIUM - SQ 10,000 UNITS/ML VIAL SQ SCH ×2 (03:56→13:49)
[2017-01-02] MEDS: CHLORHEXIDINE GLUCONATE 2 % 1 PACK (2 CLOTHS)(taper/protocol) TOPICAL SCH (04:00)
[2017-01-02 05:58] LABS: BICARBONATE 17.6 MEQ/L (21.0-32.0); MAGNESIUM 1.7 MG/DL (1.5-2.5); POTASSIUM 3.8 MEQ/L (3.5-5.1)
[2017-01-02] MEDS: SODIUM BICARBONATE IV SCH (06:05)
[2017-01-02] MEDS: POTASSIUM CHLORIDE IV SCH (06:05)
[2017-01-02] MEDS: [UNRECOGNIZED DRUG - OTHER] IV SCH (06:05)
[2017-01-02] MEDS: MEDIUM DOSE INSULIN NOVOLIN REGULAR SUPPLEMENTAL SCALE SQ SCH ×4 (06:06→21:00)
[2017-01-02] MEDS ORDERED: POTASSIUM PHOSPHATE INJ 30 MMOL in SODIUM CHLOR 0.9% 250 ML INJ 250 ML IV ONE (08:15)
[2017-01-02] MEDS: SODIUM CHLORIDE 0.9% FLUSH 10 ML FLUSH IV FLUSH SCH ×2 (08:27→21:27)
[2017-01-02] MEDS: DOCUSATE SODIUM 50 MG/SENNA 8.6 MG TAB PO SCH ×2 (08:27→21:26)
[2017-01-02] MEDS: SODIUM CHLOR 0.45% 1000 ML INJ 1,000 ML IV SCH ×2 (09:49→21:33)
--- NOTE | 2017-01-02 17:30 | HHI.PR ---
Subjective Interval History Alert, oriented, feeling better but very scared of the future with diabetes, cried during the interview Review of Systems Constitutional Constitutional Remarks 10 systems reviewed otherwise negative Vitals/Results Intake & Output 01/01/17 01/01/17 01/02/17 15:00 23:00 07:00 Intake Total 1477 ml 1717 ml 1305 ml Output Total 1625 ml 300 ml 1000 ml Balance -148 ml 1417 ml 305 ml Intake Oral 240 ml 240 ml IV Total 1477 ml 1477 ml 1065 ml Output Urine Total 1625 ml 300 ml 1000 ml Vital Signs Vital Signs Date Time Temp Pulse Resp B/P Pulse Ox O2 Delivery O2 Flow Rate FiO2 01/02/17 12:00 97.8 79 26 166/99 96 01/02/17 12:00 79 01/02/17 10:00 80 01/02/17 08:00 85 01/02/17 08:00 98.4 85 21 142/90 96 01/02/17 06:00 88 01/02/17 04:00 109 01/02/17 04:00 98.2 109 21 151/94 96 01/02/17 03:01 116 26 166/102 98 01/02/17 02:00 87 01/02/17 02:00 87 18 134/76 95 01/02/17 01:00 95 21 125/78 96 01/02/17 00:00 98.4 90 21 143/79 95 01/02/17 00:00 90 01/01/17 23:00 94 22 139/75 96 01/01/17 22:00 94 01/01/17 22:00 94 25 143/97 96 01/01/17 21:00 84 21 142/83 97 01/01/17 20:00 91 01/01/17 20:00 98.5 91 21 146/85 97 01/01/17 18:00 86 CBC/BMP: 12/31/16 1045 01/02/17 0356 Lab Results Laboratory Tests Test 01/01/17 01/02/17 20:34 03:56 Sodium Level 139 MEQ/L 137 MEQ/L Potassium Level 2.9 MEQ/L 3.8 MEQ/L Chloride Level 109 MEQ/L 107 MEQ/L Carbon Dioxide Level 18.0 MEQ/L 17.6 MEQ/L Anion Gap 12 MEQ/L 12 MEQ/L Blood Urea Nitrogen 3 MG/DL 4 MG/DL Creatinine 0.58 MG/DL 0.63 MG/DL Estimat Glomerular Filtration 145 ML/MIN 132 ML/MIN Rate Random Glucose 165 MG/DL 295 MG/DL Calcium Level 7.7 MG/DL 8.4 MG/DL B-Hydroxybutyrate 1.51 MMOL/L Phosphorus Level 1.8 MG/DL Magnesium Level 1.7 MG/DL Physical Exam General General Appearance: Comfortable, Obese Eyes Eye Exam: Pupils Reactive Ears & Nose Ears & Nose Exam: Nasal Mucosa [place] Throat Throat Exam: Oral Mucosa [place] & Moist Neck Neck Exam: Trachea Midline Pulmonary Resp Exam: Breath Sounds Equal Cardiology CV Exam: Normal Sinus Rhythm Gastrointestinal/Abdomen GI Exam: Non-Tender, Bowel Sounds Present Musculoskeletal MS Exam: Normal Tone Integumentary Skin Exam: Warm, Dry Neurologic Neuro Exam: Alert, Awake, Oriented, Speech Clear, Moving All Extremities Psychiatric Psych Exam: Appropriate Responses VTE Prophylaxis VTE Prophylaxis Meds: Heparin Assessment/Plan Assessment/Plan Assessment Diabetic ketoacidosis, resolved Obesity Hyponatremia, resolved Hyperlipidemia Hypophosphatemia , replaced Hypokalemia , replaced History of hepatitis C Management Continue long-acting insulin Statin Start metformin Diabetes education Needs to lose weight, discussed with patient Discussed with patient Possible discharge tomorrow Discussed with nurse 35 minutes Yeni Vargas MD Jan 02, 2017 17:30
[2017-01-02] MEDS ORDERED: PNEUMOCOCCAL POLYVALENT INJ 25 MCG/0.5 ML SYR IM ONE (19:15)
[2017-01-02] MEDS: INSULIN DETEMIR 100 UNITS/ML VIAL SQ SCH (21:00)
[2017-01-02] MEDS: ATORVASTATIN 10 MG TAB PO SCH (21:27)
[2017-01-03] VITALS (16 sets, daily range): BP systolic 124–155; BP diastolic 80–103; PULSE 56–98; RESP 17–24; TEMP 97.9–99.1; O2SAT 94–97
[2017-01-03] MEDS: HEPARIN SODIUM - SQ 10,000 UNITS/ML VIAL SQ SCH ×2 (04:00→14:40)
[2017-01-03] MEDS: CHLORHEXIDINE GLUCONATE 2 % 1 PACK (2 CLOTHS)(taper/protocol) TOPICAL SCH (04:00)
[2017-01-03] MEDS: MEDIUM DOSE INSULIN NOVOLIN REGULAR SUPPLEMENTAL SCALE SQ SCH ×4 (06:43→20:11)
[2017-01-03] MEDS: DOCUSATE SODIUM 50 MG/SENNA 8.6 MG TAB PO SCH ×2 (07:45→20:01)
[2017-01-03] MEDS: SODIUM CHLORIDE 0.9% FLUSH 10 ML FLUSH IV FLUSH SCH ×2 (07:46→20:02)
[2017-01-03] MEDS: SODIUM CHLOR 0.45% 1000 ML INJ 1,000 ML IV SCH (07:46)
--- NOTE | 2017-01-03 13:35 | HHI.FF ---
Face to Face Verification Diagnosis: (1) DKA (diabetic ketoacidoses) (2) Hyponatremia (3) Hypertension (4) Obesity (5) Hepatitis C (6) Non-compliance (7) Elevated liver enzymes Home Health Nursing Order: Medical education Signs/symptoms of disease process Diabetic education Nursing assessment with vital signs Retail Security Professional Order: To Provide: Community services I have seen patient Kiko Johns on 01/03/17. My clinical findings support the need for the requested home health care services because: Med compliance is questionable I certify that my clinical findings support that this patient is homebound because: Need for psychosocial assistance Gricel Zhang [facility] Jan 03, 2017 13:34
--- NOTE | 2017-01-03 13:38 | HHI.PR ---
Subjective Subjective Remarks appetite has been fair motivated to change lifestyle and manage diabetes no cp no sob no fever blood glucose >250s not ready for dc yet, pt. agreeable has been learning to administer insulin with assistant health educator Review of Systems Constitutional Constitutional Remarks 12 point ros completed, negative except as noted above Vitals/Results Intake & Output 01/02/17 01/02/17 01/03/17 15:00 23:00 07:00 Intake Total 918 ml 1201 ml Output Total 1425 ml 500 ml Balance -507 ml 701 ml Intake Oral 250 ml 250 ml IV Total 668 ml 951 ml Output Urine Total 1425 ml 500 ml Vital Signs Vital Signs Date Time Temp Pulse Resp B/P Pulse Ox O2 Delivery O2 Flow Rate FiO2 01/03/17 06:00 70 01/03/17 04:00 98.2 76 19 140/85 94 01/03/17 04:00 76 01/03/17 02:00 70 01/03/17 00:00 79 01/03/17 00:00 98.2 79 20 138/80 95 01/02/17 22:00 73 01/02/17 20:00 97.8 82 19 144/89 98 01/02/17 20:00 82 01/02/17 18:00 86 01/02/17 16:00 99.0 88 28 168/98 96 01/02/17 16:00 88 01/02/17 14:00 83 CBC/BMP: 12/31/16 1045 01/02/17 0356 Physical Exam General General Appearance: Well Developed, Comfortable, Obese Eyes Eye Exam: Pupils Equal, Pupils Reactive Ears & Nose Ears & Nose Exam: Nasal Mucosa [place] Throat Throat Exam: Oral Mucosa [place] & Moist Neck Neck Exam: Trachea Midline Pulmonary Resp Exam: Breath Sounds Equal, Decreased Bases Cardiology CV Exam: Normal Sinus Rhythm Gastrointestinal/Abdomen GI Exam: Soft, Non-Tender, Bowel Sounds Present, Non-Distended Musculoskeletal MS Exam: Normal Tone Integumentary Skin Exam: Warm, Dry Extremeties Extremities Exam: No Edema, Pedal Pulses Palpable Neurologic Neuro Exam: Alert, Awake, Oriented, Speech Clear, Moving All Extremities, No Focal Deficits Psychiatric Psych Exam: Appropriate Responses VTE Prophylaxis VTE Prophylaxis Meds: Heparin Assessment/Plan Problem List: (1) DKA (diabetic ketoacidoses) (2) Hyponatremia (3) Hypertension (4) Obesity (5) Hepatitis C (6) Elevated liver enzymes (7) Non-compliance Assessment/Plan 56-year-old male presented to the hospital with complaints of dry mouth, increased thirst decreased appetite. Symptoms have been going for 3-4 days, patient has suspected that he is diabetic however he has not follow-up with PCP in many years. Patient was found in DKA, random glucose of 436. DKA -continue with accuchecks and ISS -Hgb A1C 16.9 -continue Levemir -blood glucose still not controlled, remains >250 -add premeal Aspart 3 units -Start Metformin 850 mg po bid -assistant health educator working with pt. -enc. to lose weight Hyponatremia -resolved Elevated liver enzymes History hepatitis C, has never received treatment. Quit drinking many years ago , was a heavy alcohol user -LFTs trending down -liver ultrasound-fatty liver -repeat LFTs -Patient is encouraged to follow up as outpatient with hematology nurse educator for further evaluation and treatment of hepatitis C Hypertension, patient is not on any medications continue Vasotec 1.25 mg IV push every 6 when necessary for systolic greater than 160 and diastolic greater than 90 -add low dose Lisinopril 2.5 mg po daily, renal protective and control BP Hyperlipidemia, not on any medications Lipid profile noted -continue statins Obesity -needs to lose weight Heparin for DVT prophylaxis CM for dc planning, C if blood glucose improved at least 200 or less, plan to dc tomorrow D/W Dr. Denise D/W pt This patient was seen by myself and Dr. Denise, this note is written on his behalf Problem Qualifiers (1) DKA (diabetic ketoacidoses): Qualified Code: E13.10 - Diabetic ketoacidosis without coma associated with type 2 diabetes mellitus (2) Hypertension: Qualified Code: I10 - Hypertension, unspecified type (3) Obesity: (4) Hepatitis C: Qualified Code: B18.2 - Chronic hepatitis C without hepatic coma Gricel Zhang Jan 03, 2017 13:38
[2017-01-03] MEDS ORDERED: SODIUM PHOSPHATE INJ 15 MMOL in SODIUM CHLORIDE 0.9% INJ 150 ML IV ONE (13:45)
[2017-01-03] MEDS ORDERED: PILL SPLITTER OTHER PRN (14:30)
[2017-01-03] MEDS: LISINOPRIL 5 MG TAB PO SCH (14:40)
[2017-01-03] MEDS: INSULIN ASPART 1,000 UNITS/10 ML VIAL SQ SCH (16:50)
[2017-01-03] MEDS: metFORMIN HCL 850 MG TAB PO SCH (17:35)
[2017-01-03] MEDS: ATORVASTATIN 10 MG TAB PO SCH (20:01)
[2017-01-03] MEDS: INSULIN DETEMIR 100 UNITS/ML VIAL SQ SCH (20:11)
[2017-01-04] VITALS: BP 131/83; PULSE 85; RESP 17; TEMP 98.5; O2SAT 96
[2017-01-04] MEDS: HEPARIN SODIUM - SQ 10,000 UNITS/ML VIAL SQ SCH (03:08)
[2017-01-04] MEDS: CHLORHEXIDINE GLUCONATE 2 % 1 PACK (2 CLOTHS)(taper/protocol) TOPICAL SCH (03:08)
[2017-01-04 04:00] VITALS: BP 136/78; PULSE 85; RESP 18; TEMP 97.5; O2SAT 95
[2017-01-04] MEDS: MEDIUM DOSE INSULIN NOVOLIN REGULAR SUPPLEMENTAL SCALE SQ SCH ×2 (06:09→10:45)
[2017-01-04 06:53] LABS: INDIRECT BILIRUBIN 0.5 MG/DL (0.0-0.8); TOTAL BILIRUBIN ADULT 0.7 MG/DL (0.2-1.0)
[2017-01-04 07:51] VITALS: PULSE 76
[2017-01-04] MEDS ORDERED: LEVEMIR SQ (07:54)
[2017-01-04] MEDS ORDERED: LIPI10TA PO (07:54)
[2017-01-04] MEDS ORDERED: METF850 PO (07:54)
[2017-01-04] MEDS ORDERED: INSU100V2 SQ (07:54)
[2017-01-04] MEDS ORDERED: LISI-519 PO (07:54)
[2017-01-04] MEDS ORDERED: INSU1MIS15 (07:59)
[2017-01-04] MEDS ORDERED: GLUCKIT15 (07:59)
[2017-01-04] MEDS ORDERED: LANCETS1 MI1 (07:59)
[2017-01-04 08:00] VITALS: BP 145/99; PULSE 87; RESP 16; TEMP 98.9; O2SAT 96
[2017-01-04] MEDS: metFORMIN HCL 850 MG TAB PO SCH (08:11)
[2017-01-04] MEDS: DOCUSATE SODIUM 50 MG/SENNA 8.6 MG TAB PO SCH (08:11)
[2017-01-04] MEDS: LISINOPRIL 5 MG TAB PO SCH (08:12)
[2017-01-04] MEDS: SODIUM CHLORIDE 0.9% FLUSH 10 ML FLUSH IV FLUSH SCH (08:12)
[2017-01-04] MEDS: INSULIN ASPART 1,000 UNITS/10 ML VIAL SQ SCH ×2 (08:15→12:50)
[2017-01-04 12:00] VITALS: BP 142/91; PULSE 89; TEMP 97.8; O2SAT 98
--- NOTE | 2017-01-04 12:31 | HHI.PR ---
Subjective Subjective Remarks blood glucose better Eating okay Chest pain Or shortness of breath Blood pressure stable Anxious to go home Very motivated about managing diabetes, will be attending the diabetes class that is being offered at the hospital Review of Systems Constitutional Constitutional Remarks 12 point ros completed, negative except as noted above Vitals/Results Intake & Output 01/03/17 01/03/17 01/04/17 15:00 23:00 07:00 Intake Total 1740 ml 730 ml 480 ml Output Total 800 ml 200 ml 800 ml Balance 940 ml 530 ml -320 ml Intake Oral 400 ml 480 ml 480 ml IV Total 1340 ml 250 ml Output Urine Total 800 ml 200 ml 800 ml # Bowel Movements 0 Vital Signs Vital Signs Date Time Temp Pulse Resp B/P Pulse Ox O2 Delivery O2 Flow Rate FiO2 01/04/17 08:00 98.9 87 16 145/99 96 01/04/17 07:51 76 01/04/17 04:00 97.5 85 18 136/78 95 01/04/17 00:00 98.5 85 17 131/83 96 01/03/17 21:31 98 01/03/17 20:00 97.9 90 18 124/85 95 01/03/17 17:01 98.5 56 18 155/93 97 01/03/17 17:00 86 01/03/17 15:00 72 20 136/84 96 01/03/17 15:00 72 01/03/17 14:00 76 01/03/17 14:00 76 20 135/85 94 01/03/17 13:00 92 24 150/103 96 01/03/17 13:00 92 CBC/BMP: 12/31/16 1045 01/02/17 0356 Lab Results Laboratory Tests Test 01/04/17 05:09 Total Bilirubin 0.7 MG/DL Direct Bilirubin 0.2 MG/DL Indirect Bilirubin 0.5 MG/DL Aspartate Amino Transf 36 U/L (AST/SGOT) Alanine Aminotransferase 54 U/L (ALT/SGPT) Alkaline Phosphatase 76 U/L Total Protein 6.4 GM/DL Albumin 2.7 GM/DL Physical Exam General General Appearance: Well Developed, Comfortable, Obese Eyes Eye Exam: Pupils Equal, Pupils Reactive Ears & Nose Ears & Nose Exam: Nasal Mucosa [place] Throat Throat Exam: Oral Mucosa [place] & Moist Neck Neck Exam: Trachea Midline Pulmonary Resp Exam: Breath Sounds Equal, Decreased Bases Cardiology CV Exam: Normal Sinus Rhythm Gastrointestinal/Abdomen GI Exam: Soft, Non-Tender, Bowel Sounds Present, Non-Distended Musculoskeletal MS Exam: Normal Tone Integumentary Skin Exam: Warm, Dry Extremeties Extremities Exam: No Edema, Pedal Pulses Palpable Neurologic Neuro Exam: Alert, Awake, Oriented, Speech Clear, Moving All Extremities, No Focal Deficits Psychiatric Psych Exam: Appropriate Responses VTE Prophylaxis VTE Prophylaxis Meds: Heparin Assessment/Plan Problem List: (1) DKA (diabetic ketoacidoses) (2) Hyponatremia (3) Hypertension (4) Obesity (5) Hepatitis C (6) Elevated liver enzymes (7) Non-compliance Assessment/Plan 56-year-old male presented to the hospital with complaints of dry mouth, increased thirst decreased appetite. Symptoms have been going for 3-4 days, patient has suspected that he is diabetic however he has not follow-up with PCP in many years. Patient was found in DKA, random glucose of 436. DKA -continue with accuchecks and ISS -Hgb A1C 16.9 -continue Levemir -premeal Aspart 3 units - Metformin 850 mg po bid -ict educator worked with pt -enc. to lose weight -Blood glucose improving, patient has been administering insulin. Very motivated to learn. Hyponatremia -resolved Elevated liver enzymes History hepatitis C, has never received treatment. Quit drinking many years ago , was a heavy alcohol user -liver ultrasound-fatty liver -LFTs now normal -Patient is encouraged to follow up as outpatient with substation operator automatic for further evaluation and treatment of hepatitis C Hypertension, patient is not on any medications continue Vasotec 1.25 mg IV push every 6 when necessary for systolic greater than 160 and diastolic greater than 90 -Continue with low dose Lisinopril 2.5 mg po daily, renal protective and control BP. Blood pressure improved Hyperlipidemia, not on any medications Lipid profile noted -continue statins -LFTs now normal Obesity -needs to lose weight Heparin for DVT prophylaxis CM for dc planning, [facility] Patient stable for discharge, blood glucose has improved since admission Follow-up with primary care in 1-2 week Follow-up with psychiatry Follow-up with gastroenterology Diabetic diet Activity as tolerated To lose weight Repeat labs in one week, slip given D/W Dr. Denise D/W pt D/W RN This patient was seen by myself and Dr. Denise, this note is written on his behalf Problem Qualifiers (1) DKA (diabetic ketoacidoses): Qualified Code: E13.10 - Diabetic ketoacidosis without coma associated with type 2 diabetes mellitus (2) Hypertension: Qualified Code: I10 - Hypertension, unspecified type (3) Obesity: (4) Hepatitis C: Qualified Code: B18.2 - Chronic hepatitis C without hepatic coma Gricel Zhang [facility] Jan 04, 2017 12:30
--- NOTE | 2017-01-04 12:31 | HHI.DS ---
Discharge Summary Admission Date Dec 31, 2016 at 13:01 Discharge Date: Jan 04, 2017 Admitting Diagnosis DKA (1) DKA (diabetic ketoacidoses) (2) Hypertension (3) Obesity (4) Hepatitis C (5) Elevated liver enzymes (6) Non-compliance (7) Hyponatremia CBC/BMP: 12/31/16 1045 01/02/17 0356 Significant Findings Laboratory Tests Test 01/01/17 01/01/17 01/02/17 01/04/17 14:52 20:34 03:56 05:09 Potassium Level 3.2 MEQ/L 2.9 MEQ/L (3.5-5.1) (3.5-5.1) Chloride Level 109 MEQ/L 109 MEQ/L (98-107) (98-107) Carbon Dioxide Level 17.4 MEQ/L 18.0 MEQ/L 17.6 MEQ/L (21.0-32.0) (21.0-32.0) (21.0-32.0) Blood Urea Nitrogen 5 MG/DL (7-18) 3 MG/DL (7-18) 4 MG/DL (7-18) Random Glucose 239 MG/DL 165 MG/DL 295 MG/DL (74-106) (74-106) (74-106) Hemoglobin A1c 16.9 % (4.3-6.0) Calcium Level 7.9 MG/DL 7.7 MG/DL 8.4 MG/DL (8.5-10.1) (8.5-10.1) (8.5-10.1) Phosphorus Level 1.4 MG/DL 1.8 MG/DL (2.5-4.9) (2.5-4.9) Cholesterol Level 201 MG/DL (120-200) LDL Cholesterol 130 MG/DL (0-99) B-Hydroxybutyrate 1.99 MMOL/L 1.51 MMOL/L (0.00-0.39) (0.00-0.39) Creatinine 0.58 MG/DL (0.60-1.30) Albumin 2.7 GM/DL (3.4-5.0) Imaging Last Impressions Liver Ultrasound 12/31/16 0000 Signed Impressions: Service Date/Time: Saturday, December 31, 2016 15:17 - CONCLUSION: 1. Minimal gallbladder sludge. No sonographic evidence to suggest acute cholecystitis. 2. Hepatic steatosis with focal fatty sparing adjacent to gallbladder fossa. Teddy Espino Jr., MD Chest X-Ray 12/31/16 0000 Signed Impressions: Service Date/Time: Saturday, December 31, 2016 12:22 - CONCLUSION: No acute disease. Catarino Redmond MD Hospital Course This is a 56-year-old white male who presented to the emergency room with complaints of dry mouth and decreased appetite. Patient has significant past medical history of hepatitis C, prior diagnosis of hypertension hyperlipidemia but doesn't take any medications, anxiety, depression, bipolar disease. Patient indicates that he suspected he has diabetes but has not seen his primary care physician in many years, he had an appointment for next week but because he felt so poorly he decided to come to the emergency room. Patient endorses increased mouth dryness, increased thirst, has had poor appetite. He had an episode of vomiting a few days ago. Denies any abdominal pain, no chest pain, no shortness of breath, no diarrhea, no fever, no chills. Patient indicates that he only follows up regularly with his psychiatrist as shaniqua Stafford and is compliant with his psychiatric medications. In the emergency room, patient was evaluated, he was noted tachycardic, heart rate 112, temperature 90.1, respiratory rate 18, blood pressure 134/93, sats 99% on room air. CBC was unremarkable. BMP remarkable for hyponatremia, sodium 128, chloride 93, carbon dioxide 8.7, anion gap 26, GFR 63, random glucose 436, AST 144, ALT 147. Urinalysis positive for glycosuria and ketones. B hydroxy butyrate was 15.76. Patient was started on DKA protocol, he received 1 L IV fluids. Patient indicated that he quit drinking many years ago. He was diagnosed with hepatitis C but has never sought treatment with clinical assessment manager. His abdomen was noted protuberant, indicated that he has noted an increase in weight but he attributed it to Seroquel. Patient was admitted for further evaluation and treatment: (1) DKA (diabetic ketoacidoses) (2) Hyponatremia (3) Hypertension (4) Obesity (5) Hepatitis C (6) Elevated liver enzymes (7) Non-compliance During the course of the hospitalization, the following took place: 56-year-old male presented to the hospital with complaints of dry mouth, increased thirst decreased appetite. Symptoms have been going for 3-4 days, patient has suspected that he is diabetic however he has not follow-up with PCP in many years. Patient was found in DKA, random glucose of 436. DKA Patient initially admitted to ICU, put on DKA protocol with IV fluids and insulin drip. Patient stabilized and was transitioned to insulin per sliding scale. -continued with accuchecks and ISS -Hgb A1C 16.9 -Added Levemir -premeal Aspart 3 units was added as the blood sugar remained greater than 250 - Metformin 850 mg po bid was also added, renal function stable -educator senior clinical was consulted and worked with pt -enc. to lose weight-patient motivated. -Blood glucose improved, patient was administering insulin. Hyponatremia initially -resolved Elevated liver enzymes History hepatitis C, has never received treatment. Quit drinking many years ago , was a heavy alcohol user -liver ultrasound-fatty liver -LFTs trended down to normal. -Patient is encouraged to follow up as outpatient with business advisor for further evaluation and treatment of hepatitis C Hypertension, patient was not on any medications put on Vasotec 1.25 mg IV push every 6 when necessary for systolic greater than 160 and diastolic greater than 90 -Started on low dose Lisinopril 2.5 mg po daily, renal protective and control BP. Blood pressure improved Hyperlipidemia, not on any medications Lipid profile noted -Started on statins -LFTs now normal Obesity -needs to lose weight, encouraged to do so. Heparin for DVT prophylaxis CM for dc planning, [facility] Patient stable for discharge, blood glucose improved since admission Follow-up with primary care in 1-2 week Follow-up with psychiatry Follow-up with gastroenterology Diabetic diet Activity as tolerated Enc. to lose weight Repeat labs in one week, slip given D/W Dr. Denise D/W pt D/W RN This patient was seen by myself and Dr. Denise, this note is written on his behalf Pt Condition on Discharge: Stable Discharge Disposition: Disch w/ Home Health Serv Discharge Instructions DIET: Follow Instructions for: Diabetic Diet Activities you can perform: Weight Bearing as Ranjan New Medications: Blood Glucose Monitoring W/Device (Glucocom Blood Glucose Mo W/Device) 1 Kit Kit 1 KIT .ROUTE DIRECTED Blood Sugar Management #1 KIT Insulin Human Regular Inj (Humulin R Inj) 1,000 Unit/10 Ml Vial 2-12 UNITS SQ ACHS Max dose at bedtime:( )units; sugars < 70 (0)units; sugars 150-199, (2)units; sugars 200-249,(4)units; sugars 250-299, (7)units; sugars 300 -349,(10)units; sugars more than 349,(12)units. Blood Sugar Management #10 Ref 0 ML Insulin Syringe/U-100/31G X 5/16" 1 ml (Insulin Syringe/U-100/31G X 5/16" 1 ml) 1 Mis Mis 1 EA .ROUTE DIRECTED Blood Sugar Management #1 Ref 0 BOX Lancets (Lancets) 1 Mis Mis 1 EA .ROUTE DIRECTED Blood Sugar Management #1 Ref 0 BOX Atorvastatin (Lipitor) 10 Mg Tab 10 MG PO HS Cholesterol Management #30 Ref 1 TAB Insulin Detemir Inj (Levemir Inj) 1,000 unit/ 10 ML Vial 26 UNITS SQ HS GLUCOSE MANAGEMENT #1 INJECTION Lisinopril (Lisinopril) 5 Mg Tab 2.5 MG PO DAILY Blood Pressure Management #30 Ref 1 TAB Metformin (Glucophage) 850 Mg Tab 850 MG PO BIDPC GLUCOSE MANAGEMENT #60 Ref 1 TAB Continued Medications: Quetiapine (Seroquel) 50 Mg Tab 50 MG PO HS #30 Ref 0 TAB Discontinued Medications: Hydralazine (Hydralazine) 100 Mg Tab 100 MG PO BID Take with meals Blood Pressure Management Ref 0 TAB Gricel Zhang Jan 04, 2017 12:31
== END 2017-01-04 15:29 | disposition home health service (06) | DRG 638 ==
LOC: NEPC 10:26 → NEDA 13:01 → HIMW 15:15 → HOCA 01-03 16:23
PROVIDERS: ADMIT Specialist; ATTEND Specialist
DX: E13.10 Other specified diabetes mellitus with ketoacidosis without coma (principal); E87.3 Alkalosis; K76.0 Fatty (change of) liver, not elsewhere classified; E87.1 Hypo-osmolality and hyponatremia; I10 Essential (primary) hypertension; F41.9 Anxiety disorder, unspecified; F31.9 Bipolar disorder, unspecified; K21.9 Gastro-esophageal reflux disease without esophagitis; R00.0 Tachycardia, unspecified; E78.5 Hyperlipidemia, unspecified; E66.9 Obesity, unspecified; Z82.49 Family history of ischemic heart disease and other diseases of the circulatory system; Z83.3 Family history of diabetes mellitus; Z91.19 Patient's noncompliance with other medical treatment and regimen; B18.2 Chronic viral hepatitis C; E87.6 Hypokalemia; E83.39 Other disorders of phosphorus metabolism
CPT/HCPCS: 36600; 71010; 76705; 80048; 80053; 80061; 80076; 81001; 82010; 82805; 82948; 83036; 83735; 84100; 84443; 85025; 87641; 96360; J1644; J1815; J1817; J2405; J3480; J7030; J7042; J7050

== ENCOUNTER → 2017-02-27 | Outpatient (CLI) | payer MEDICARE, MEDICAID, OTHER ==
[~2017-02-27] MED LIST changes: -AMOX875T PO; +GLUCKIT15; +INSU100V2 SQ; +INSU1MIS15; +LANCETS1 MI1; +LEVEMIR SQ; +LIPI10TA PO; +LISI-519 PO; +METF850 PO; +SERO50TA PO
[2017-02-27 10:25] LABS: BACTERIA, URINE RARE /hpf; BLOOD, URINE NEG (NEG); GLUCOSE,URINE NEG (NEG); HYALINE CAST, URINE 3 /lpf (RARE); KETONE, URINE NEG (NEG); MUCUS URINE MANY /lpf (OCC); NITRITE,URINE NEG (NEG); PH, URINE 5.5 (5.0-8.5); URINE COLOR YELLOW (YELLW/STRAW)
[2017-02-27 10:40] LABS: BASOPHIL % 0.7 % (0.0-2.0); EOSINOPHIL # 0.1 TH/MM3 (0-0.4); EOSINOPHIL % 1.5 % (0.0-4.0); HEMO FLAGS DIFF FINAL; LYMPH % 24.7 % (9.0-44.0); LYMPHOCYTE # 1.9 TH/MM3 (1.0-4.8); MEAN CELL VOLUME 84.9 FL (80.0-100.0); MEAN CORPUSCULAR HEMOGLOBIN 28.1 PG (27.0-34.0); MONO % 7.7 % (0.0-8.0); NEUT % 65.4 % (16.0-70.0); PLATELET COUNT 279 TH/MM3 (150-450); RED BLOOD COUNT 4.95 MIL/MM3 (4.50-5.90); RED CELL DISTRIBUTION WIDTH 13.8 % (11.6-17.2); WHITE BLOOD COUNT 7.7 TH/MM3 (4.0-11.0)
[2017-02-27 10:53] LABS: ANION GAP 10 MEQ/L (5-15); AST (GOT) 15 U/L (15-37); BLOOD UREA NITROGEN 15 MG/DL (7-18); CHLORIDE 105 MEQ/L (98-107); GLOMERULAR FILTRATION RATE 91 ML/MIN (>89); GLUCOSE,FASTING 90 MG/DL (74-99); POTASSIUM 4.3 MEQ/L (3.5-5.1); SODIUM (NA) 138 MEQ/L (136-145)
[2017-02-27 10:54] LABS: ALT (GPT) 25 U/L (12-78)
[2017-02-27 11:04] LABS: ALKALINE PHOSPHATASE 63 U/L (45-117); HDL CHOLESTEROL 57.4 MG/DL (40.0-60.0); LDL CHOLESTEROL 76 MG/DL (0-99); TOTAL BILIRUBIN ADULT 0.9 MG/DL (0.2-1.0)
[2017-02-27 13:48] LABS: HEMOGLOBIN A1a 1.2 %; HEMOGLOBIN A1b 2.1 %; HEMOGLOBIN Ao 81.8 %; HEMOGLOBIN LA1C 1.9 %; HEMOGLOBIN P3 3.6 %
== END ==
LOC: CLAB 09:34
PROVIDERS: ATTEND Family Medicine
DX: E11.9 Type 2 diabetes mellitus without complications (principal)
CPT/HCPCS: 36415; 80053; 80061; 81001; 82043; 83036; 84443; 85025; 87389

== ENCOUNTER → 2017-03-02 | Outpatient (CLI) | payer MEDICARE, MEDICAID, OTHER ==
[2017-03-04 16:28] LABS: MITOGEN MINUS NIL RESULT >10.00 IU/mL; NIL RESULT 0.02 IU/mL; QUANTIFERON TB GOLD RESULT Negative (Negative)
== END ==
LOC: CLAB 09:31
PROVIDERS: ATTEND Family Medicine
DX: Z00.00 Encounter for general adult medical examination without abnormal findings (principal)
CPT/HCPCS: 36415; 86480

== ENCOUNTER → 2017-10-22 | Outpatient (CLI) | payer MEDICARE, MEDICAID ==
[2017-10-22 11:30] LABS: AUTOMATED NEUTROPHIL # 4.2 TH/MM3 (1.8-7.7); BASOPHIL % 0.7 % (0.0-2.0); EOSINOPHIL # 0.2 TH/MM3 (0-0.4); EOSINOPHIL % 2.6 % (0.0-4.0); HEMATOCRIT 45.3 % (39.0-51.0); HEMOGLOBIN 14.8 GM/DL (13.0-17.0); LYMPH % 26.1 % (9.0-44.0); LYMPHOCYTE # 1.8 TH/MM3 (1.0-4.8); MEAN CORPUSCULAR HEMOGLOBIN 26.8 PG (27.0-34.0); MEAN CORPUSCULAR HGB CONC 32.7 % (32.0-36.0); MEAN PLATELET VOLUME 7.6 FL (7.0-11.0); MONO % 9.5 % (0.0-8.0); MONOCYTE # 0.6 TH/MM3 (0-0.9); NEUT % 61.1 % (16.0-70.0); PLATELET COUNT 270 TH/MM3 (150-450); RED BLOOD COUNT 5.52 MIL/MM3 (4.50-5.90); RED CELL DISTRIBUTION WIDTH 14.7 % (11.6-17.2); WHITE BLOOD COUNT 6.8 TH/MM3 (4.0-11.0)
[2017-10-22 11:36] LABS: BILIRUBIN, URINE NEG (NEG); BLOOD, URINE NEG (NEG); GLUCOSE,URINE 1000 mg/dL (NEG); KETONE, URINE NEG (NEG); NITRITE,URINE NEG (NEG); URINE COLOR LIGHT-YELLOW (YELLW/STRAW); URINE LEUKOCYTE ESTERASE NEG (NEG)
[2017-10-22 12:41] LABS: ALBUMIN 4.1 GM/DL (3.4-5.0); ALKALINE PHOSPHATASE 46 U/L (45-117); AST (GOT) 15 U/L (15-37); BLOOD UREA NITROGEN 22 MG/DL (7-18); CALCIUM 8.9 MG/DL (8.5-10.1); CREATININE 1.03 MG/DL (0.60-1.30); GLOMERULAR FILTRATION RATE 74 ML/MIN (>89); GLUCOSE,FASTING 96 MG/DL (74-99); TOTAL PROTEIN 7.9 GM/DL (6.4-8.2)
[2017-10-22 12:42] LABS: ALT (GPT) 19 U/L (12-78); BICARBONATE 24.1 MEQ/L (21.0-32.0); CHLORIDE 104 MEQ/L (98-107); CHOLESTEROL 212 MG/DL (120-200); SODIUM (NA) 139 MEQ/L (136-145); TOTAL BILIRUBIN ADULT 0.7 MG/DL (0.2-1.0); TRIGLYCERIDES 71 MG/DL (42-150)
[2017-10-22 12:43] LABS: HDL CHOLESTEROL 81.5 MG/DL (40.0-60.0); LDL CHOLESTEROL 116 MG/DL (0-99)
[2017-10-22 16:59] LABS: HEMOGLOBIN A1C 5.7 % (4.3-6.0)
[2017-10-26 13:54] LABS: FREE TESTOSTERONE 7.38 ng/dL (3.87-14.7); PROLACTIN 9.7 ng/mL (4.0 - 15.2)
[2017-10-26 14:00] LABS: MITOGEN MINUS NIL RESULT 9.43 IU/mL; NIL RESULT 0.02 IU/mL; QUANTIFERON TB GOLD + RESULT Negative (Negative)
== END ==
LOC: CLAB 10:26
PROVIDERS: ATTEND Family Medicine
DX: E11.9 Type 2 diabetes mellitus without complications (principal); K73.9 Chronic hepatitis, unspecified; E78.5 Hyperlipidemia, unspecified; R53.83 Other fatigue
CPT/HCPCS: 36415; 80053; 80061; 80074; 81001; 82607; 83036; 84146; 84403; 84410; 84443; 85025; 86480